=== PATIENT | male | born 1990 | race African-American/Black ===

== ENCOUNTER 2016-08-10 16:28 | Emergency (ER) | payer MEDICAID ==
[~2016-08-10] VITALS: Ht 193 cm; Wt 71.0 kg
[2016-08-10 16:50] VITALS: Ht 193 cm; Wt 71.0 kg
[2016-08-10] MEDS ORDERED: TETRACAINE 0.5% 4 ML OPH LEFT EYE ONE (19:00)
[2016-08-10] MEDS ORDERED: FLUORESCEIN STRIP LEFT EYE ONE (19:00)
[2016-08-10] MEDS ORDERED: ERYTOPOI LEFT EYE (19:38)
[2016-08-10] MEDS ORDERED: IBUP-1542 PO (19:38)
--- NOTE | 2016-08-10 19:57 | ERD ---
ER Documentation Chief Complaint Date/Time DATE: 08/10/16 TIME: 19:55 Chief Complaint LEFT EYE REDNESS,POSSIBLE FOREIGN BODY HPI This is a 25-year-old -[place] male complaining of left eye irritation for 1 week. Patient states that symptoms started when he was walking and he felt something flew in his left eye. Patient denies any headache, dizziness, blurred vision or eye discharges. Medical and surgical history are unremarkable. Patient does not take any medications. ROS All systems reviewed and are negative except as per history of present illness. Medications Home Meds Active Scripts Ibuprofen* (Motrin*) 600 Mg Tab, 600 MG PO Q6H Y for PAIN AND OR ELEVATED TEMP, #30 TAB Prov:NAIF ENAMORADO 08/10/16 Erythromycin* (Erythromycin* Ophthalmic) 1 Applic Oint, 1 APPLIC LEFT EYE QID for 7 Days, EA Prov:NAIF ENAMORADO 08/10/16 PMhx/Soc Medical and Surgical Hx: pt denies Medical Hx, pt denies Surgical Hx Hx Alcohol Use: No Hx Substance Use: No Hx Tobacco Use: No Smoking Status: Current every day smoker Physical Exam Vitals Vital Signs Date Time Temp Pulse Resp B/P Pulse Ox O2 Delivery O2 Flow Rate FiO2 08/10/16 16:50 97.0 78 18 132/70 98 Physical Exam Physical Exam CONST: Well-developed, well-nourished, in no acute distress. Nontoxic in appearance. HEENT: Bulbous conjunctival injection on the left eye. EOM intact. TM intact. External ear is normal. Clear oropharnyx without erythema. No uvular deviation. Moist mucous membranes. Supple neck. No meningismus. No submandibular induration. RESP: Clear to auscultation bilaterally. No wheezing. CARDIO: Regular rate and rhythm, no murmurs. ABD: Soft, non tender, non distended. Normal bowel sounds. No McBurney's point tenderness. No guarding or rigidity. No peritoneal signs. SKIN: No petechiae or rashes. BACK: No midline or flank tenderness. EXT: No cyanosis or edema. Distal pulses equal and bilateral. NEURO: Awake and alert, appropriate for age. Results 24 hrs Current Medications Medications (Trade) Dose Ordered Sig/Ricky Route PRN Reason Start Time Stop Time Status Last Admin Dose Admin Tetracaine HCl (Tetracaine 0.5% Steri-Unit Libby) 1 drop ONCE ONCE LEFT EYE 08/10/16 19:00 08/10/16 19:01 DC Fluorescein Sodium (Qyzft-L-Wsjwu) 1 strip ONCE ONCE LEFT EYE 08/10/16 19:00 08/10/16 19:01 DC Procedures/[facility] EMERGENCY [facility]PARTMENT COURSE/MEDICAL DECISION MAKING This is a 25-year-old male who comes to the emergency room secondary to complaints of left eye irritation for 1 week. Patient felt that something flew into his left eye while he was walking. Either visual acuity shows left eye 20/20, right eye 20/40, bilateral eyes 20/20 Slit-lamp was done and no foreign body was seen. Case was presented to Dr. Ley and he re-evaluated the patient. He advised to discharge patient with an outpatient management of otic antibiotics. My primary diagnosis is pain in eye. Secondary diagnosis is left eye injury Differential diagnoses considered but not limited to foreign body, chalazion, conjunctive conjunctivitis, hordeolum . Pt is hemodynamically stable upon reassessment. The patient was discharged for outpatient management with a prescription for erythromycin otic and ibuprofen. The patient was advised to followup with an medical sales specialist and with his PMD in 1-2 days and to return to the Emergency Department if there are any new or worsening symptoms. The patient understood and agreed with the diagnosis, treatment and plan. Patient is stable for discharge at this time. Departure Diagnosis: Primary Impression: Pain in eye Laterality: left Qualified Code: H57.12 - Pain in eye, left Additional Impression: Left eye injury Encounter type: initial encounter Qualified Code: S05.92XA - Left eye injury , initial encounter Condition: Stable Patient Instructions: Erythromycin Eye ointment Referrals: [facility] Hours: Mon - Fri 9:00 AM - 5:00 PM [facility] YOU HAVE RECEIVED A MEDICAL SCREENING EXAM AND THE RESULTS INDICATE THAT YOU DO NOT HAVE A CONDITION THAT REQUIRES URGENT TREATMENT IN THE EMERGENCY DEPARTMENT. FURTHER EVALUATION AND TREATMENT OF YOUR CONDITION CAN WAIT UNTIL YOU ARE SEEN IN YOUR DOCTORS OFFICE WITHIN THE NEXT 1-2 DAYS. IT IS YOUR RESPONSIBILITY TO MAKE AN APPOINTMENT FOR FOLOW-UP CARE. IF YOU HAVE A PRIMARY DOCTOR --you should call your primary doctor and schedule an appointment IF YOU DO NOT HAVE A PRIMARY DOCTOR YOU CAN CALL OUR PHYSICIAN REFERRAL HOTLINE AT IF YOU CAN NOT AFFORD TO SEE A PHYSICIAN YOU CAN CHOSE FROM THE FOLLOWING COMMUNITY CLINICS [facility] [address] [facility] [address] [address] [facility] [address] [facility]. [facility] [address] [facility]. [facility] [address] Additional Instructions: Follow-up with an medical sales specialist in 1-2 days. Follow-up with your primary care physician in 1-2 days. Return to the emergency department immediately should you have any new or worsening symptoms, uncontrolled fevers, or other unexplained symptoms. Take all medications as directed. NAIF ENAMORADO Aug 10, 2016 19:57
== END 2016-08-10 19:50 | disposition home or self-care (01) ==
LOC: FTE 16:28
DX: S05.92XA Unspecified injury of left eye and orbit, initial encounter (principal); F17.210 Nicotine dependence, cigarettes, uncomplicated; X58.XXXA Exposure to other specified factors, initial encounter; Y92.9 Unspecified place or not applicable
CPT/HCPCS: Z7502; Z7610; 99283